=== PATIENT | female | born 2005 | race Caucasian/White ===

== ENCOUNTER 2024-03-28 15:12 | Emergency (ER) | payer OTHER ==
[~2024-03-28] VITALS: Ht 177.8 cm; Wt 8.4 kg
[2024-03-29 00:49] VITALS: BP 124/68; TEMP 98.2; O2SAT 99
== END 2024-03-29 00:50 | disposition home or self-care (01) ==
LOC: M ED 15:12
DX: S16.1XXA Strain of muscle, fascia and tendon at neck level, initial encounter (principal); V49.50XA Passenger injured in collision with unspecified motor vehicles in traffic accident, initial encounter; Y92.410 Unspecified street and highway as the place of occurrence of the external cause; Y93.89 Activity, other specified; Y99.9 Unspecified external cause status